=== PATIENT | male | born 1950 | race Hispanic/Latino ===

== ENCOUNTER → 2020-04-10 | Outpatient (CLI) | payer OTHER, MEDICARE | END | disposition home or self-care (01) | LOC: SHCH 10:21 | PROVIDERS: ATTEND Internal Medicine Cardiovascular Disease | DX: I51.7 Cardiomegaly (principal); I25.118 Atherosclerotic heart disease of native coronary artery with other forms of angina pectoris | CPT/HCPCS: 93306 ==

== ENCOUNTER → 2020-04-13 | Outpatient (CLI) | payer OTHER, MEDICARE ==
[~2020-04-13] MED LIST: REGADENOSON 0.4 MG/5 ML PF SYG IVP SCH
== END | disposition home or self-care (01) ==
LOC: SHCH 08:09
PROVIDERS: ATTEND Internal Medicine Cardiovascular Disease
DX: I25.118 Atherosclerotic heart disease of native coronary artery with other forms of angina pectoris (principal)
CPT/HCPCS: 78452; 93017; 96374; A9500 ×2; J2785

== ENCOUNTER 2021-10-17 16:40 | Inpatient (IN) | payer OTHER, MEDICARE ==
[~2021-10-17] VITALS: Ht 182.9 cm; Wt 117.9 kg
[2021-10-17 17:03] LABS: BASOPHILS % (AUTO) 0.8 % (0.0-5.0); EOSINOPHILS % (AUTO) 4.2 % (0.0-8.0); HEMATOCRIT 49.4 % (42-54); LYMPHOCYTES % (AUTO) 20.9 % (21.0-51.0); MEAN CORPUSCULAR HEMOGLOBIN 30.2 pg (27.0-33.0); MEAN CORPUSCULAR HGB CONC 33.4 g/dL (32.0-36.0); MEAN CORPUSCULAR VOLUME 90.3 fL (79-99); MONOCYTES % (AUTO) 10.1 % (3.0-13.0); NEUTROPHILS % (AUTO) 63.7 % (40.0-77.0); PLATELET COUNT (AUTO) 209 K/uL (130-400); RED BLOOD CELL COUNT(AUTO) 5.47 MIL/uL (4.50-6.20); RED CELL DISTRIBUTION WIDTH 13.8 % (11.0-15.5)
[2021-10-17] MEDS ORDERED: 0.9%NACL 1000ML 1,000 ML IV ONE (17:07)
[2021-10-17 17:17] LABS: CREATININE 1.6 mg/dL (0.5-1.5); INR 0.94 (0.85-1.15); POTASSIUM 4.1 mmol/L (3.5-5.1); PROTHROMBIN TIME 10.3 SEC (9.6-11.6)
[2021-10-17 17:18] LABS: PARTIAL THROMBOPLASTIN TIME 26.5 SEC (26.3-35.5)
[2021-10-17 17:26] LABS: B-TYPE NATRIURETIC PEPTIDE 238 pg/mL (0-100)
[2021-10-17 17:30] LABS: ALBUMIN 3.7 g/dL (3.5-5.0); BILIRUBIN,TOTAL 0.5 mg/dL (0.2-1.0); MAGNESIUM 1.9 mg/dL (1.80-2.40); TOTAL PROTEIN, SERUM 7.5 g/dL (6.0-8.3)
[2021-10-17 18:56] LABS: APPEARANCE,URINE Clear (CLEAR); BILIRUBIN,URINE Negative (NEGATIVE); COLOR,URINE Yellow (YELLOW); GLUCOSE, URINE (UA) >=1000 mg/dL (NEGATIVE); KETONES,URINE Negative (NEGATIVE); LEUKOCYTE ESTERASE ,URINE Negative (NEGATIVE); NITRATE,URINE Negative (NEGATIVE); OCCULT BLOOD,URINE Negative (NEGATIVE); PROTEIN,URINE Negative (NEGATIVE); UROBILINOGEN,URINE 0.2 mg/dL (0.2-1.0)
[2021-10-17] MEDS ORDERED: INSULIN HUMULIN R 100 UNIT/ML 3ML IV ONE (19:00)
[2021-10-17 19:04] LABS: BACTERIA,URINE Few /HPF (None Seen); MUCUS,URINE Few LPF (None Seen); SQUAMOUS EPITHELIAL CELL,UR Few /HPF (0-2)
[2021-10-17] MEDS ORDERED: 0.9% NACL 500ML IV.SOLN 500 ML IV ONE (19:45)
[2021-10-17] MEDS ORDERED: 0.9%NACL 1000ML 500 ML IV SCH (20:00)
[2021-10-17] MEDS ORDERED: ACETAMINOPHEN 325 MG TAB PO PRN (21:00)
[2021-10-17] MEDS ORDERED: GLUCAGON 1MG KIT 1 MG ML IM PRN (21:00)
[2021-10-17] MEDS ORDERED: DEXTROSE 50%-WATER 50 ML DISP.SYRIN IV PRN (21:00)
[2021-10-17] MEDS ORDERED: ONDANSETRON 4MG INJ IVP PRN (21:00)
[2021-10-17] MEDS: 0.9%NACL 1000ML 1,000 ML IV SCH (21:55)
[2021-10-17] MEDS: INSULIN R PO SS1 SQ SCH (22:15)
[2021-10-18 06:28] LABS: HEMATOCRIT 49.4 % (42-54); MEAN CORPUSCULAR HGB CONC 32.6 g/dL (32.0-36.0); MEAN CORPUSCULAR VOLUME 92.2 fL (79-99); RED BLOOD CELL COUNT(AUTO) 5.36 MIL/uL (4.50-6.20); RED CELL DISTRIBUTION WIDTH 14.1 % (11.0-15.5); WHITE BLOOD COUNT (AUTO) 5.7 K/uL (4.8-10.8)
[2021-10-18 06:36] LABS: HEMOGLOBIN A1C 9.6 % (4.0-6.0)
[2021-10-18 06:41] LABS: ALBUMIN 3.8 g/dL (3.5-5.0); BILIRUBIN,TOTAL 0.7 mg/dL (0.2-1.0); CREATININE 1.2 mg/dL (0.5-1.5); MAGNESIUM 2.1 mg/dL (1.80-2.40); TOTAL PROTEIN, SERUM 7.8 g/dL (6.0-8.3)
[2021-10-18] MEDS: INSULIN R PO SS1 SQ SCH ×2 (07:44→11:28)
[2021-10-18] MEDS ORDERED: METOPROLOL TARTRATE 25 MG TAB PO SCH (09:30)
[2021-10-18] MEDS: 0.9%NACL 1000ML 1,000 ML IV SCH (10:22)
[2021-10-18 14:09] VITALS: BP 115/48
== END 2021-10-18 15:21 | disposition home or self-care (01) | DRG 641 ==
LOC: EDH 16:40 → EDHIP 20:48
PROVIDERS: ADMIT Internal Medicine Infectious Disease; ATTEND Internal Medicine Infectious Disease
DX: E86.0 Dehydration (principal); N17.9 Acute kidney failure, unspecified; I48.0 Paroxysmal atrial fibrillation; E78.5 Hyperlipidemia, unspecified; I25.10 Atherosclerotic heart disease of native coronary artery without angina pectoris; E11.9 Type 2 diabetes mellitus without complications; Z20.822 Contact with and (suspected) exposure to COVID-19; I10 Essential (primary) hypertension; E66.01 Morbid (severe) obesity due to excess calories; Z68.35 Body mass index [BMI] 35.0-35.9, adult; Z83.3 Family history of diabetes mellitus; R55 Syncope and collapse
CPT/HCPCS: 36415; 71045; 80053; 81001; 82550; 82948; 83036; 83735; 83880; 84484; 85025; 85027; 85378; 85610; 85730; 87635; 93005; 93306; 93356; C9803; G0378; J1815; J7030; J7040

== ENCOUNTER 2021-11-15 09:45 | Emergency (ER) | payer OTHER, MEDICARE ==
[~2021-11-15] VITALS: Ht 182.9 cm; Wt 117.9 kg
[2021-11-15 10:13] LABS: BASOPHILS % (AUTO) 1.1 % (0.0-5.0); EOSINOPHILS % (AUTO) 4.7 % (0.0-8.0); HEMATOCRIT 51.1 % (42-54); LYMPHOCYTES % (AUTO) 22.7 % (21.0-51.0); MEAN CORPUSCULAR HGB CONC 33.1 g/dL (32.0-36.0); MEAN CORPUSCULAR VOLUME 90.6 fL (79-99); MONOCYTES % (AUTO) 8.8 % (3.0-13.0); NEUTROPHILS % (AUTO) 62.3 % (40.0-77.0); PLATELET COUNT (AUTO) 191 K/uL (130-400); RED BLOOD CELL COUNT(AUTO) 5.64 MIL/uL (4.50-6.20); RED CELL DISTRIBUTION WIDTH 13.9 % (11.0-15.5); WHITE BLOOD COUNT (AUTO) 5.4 K/uL (4.8-10.8)
[2021-11-15 10:21] LABS: CREATININE 1.2 mg/dL (0.5-1.5); POTASSIUM 4.2 mmol/L (3.5-5.1)
[2021-11-15] MEDS ORDERED: INSULIN HUMULIN R 100 UNIT/ML 3ML SQ SCH (13:30)
[2021-11-15] MEDS ORDERED: 0.9%NACL 1000ML 1,000 ML IV SCH (13:30)
[2021-11-15 14:09] LABS: APPEARANCE,URINE Clear (CLEAR); BILIRUBIN,URINE Negative (NEGATIVE); COLOR,URINE Yellow (YELLOW); GLUCOSE, URINE (UA) >=1000 mg/dL (NEGATIVE); KETONES,URINE Trace mg/dL (NEGATIVE); LEUKOCYTE ESTERASE ,URINE Negative (NEGATIVE); NITRATE,URINE Negative (NEGATIVE); OCCULT BLOOD,URINE Negative (NEGATIVE); PROTEIN,URINE Negative (NEGATIVE); UROBILINOGEN,URINE 0.2 mg/dL (0.2-1.0)
[2021-11-15 14:31] LABS: BACTERIA,URINE Rare /HPF (None Seen); RBC,URINE 0-1 /HPF (0-1); SQUAMOUS EPITHELIAL CELL,UR Rare /HPF (0-2); WBC,URINE 0-1 /HPF (0-1)
[2021-11-15 14:40] VITALS: BP 113/59
== END 2021-11-15 15:03 | disposition home or self-care (01) ==
LOC: EDH 09:45
DX: M62.81 Muscle weakness (generalized) (principal); E86.9 Volume depletion, unspecified; E11.9 Type 2 diabetes mellitus without complications; I11.0 Hypertensive heart disease with heart failure; I50.9 Heart failure, unspecified; Z98.890 Other specified postprocedural states
CPT/HCPCS: 36415; 80048; 81001; 82948 ×2; 84484; 85025; 93005; 96360; 96372; 99284; J1815; J7030; 96361

== ENCOUNTER 2022-03-22 08:03 | Emergency (ER) | payer OTHER, MEDICARE ==
[~2022-03-22] VITALS: Ht 182.9 cm; Wt 116.1 kg
[2022-03-22 08:48] LABS: HEMATOCRIT 48.1 % (42-54); LYMPHOCYTES % (AUTO) 22.8 % (21.0-51.0); MEAN CORPUSCULAR HEMOGLOBIN 30.6 pg (27.0-33.0); MEAN CORPUSCULAR HGB CONC 33.5 g/dL (32.0-36.0); MEAN CORPUSCULAR VOLUME 91.3 fL (79-99); MONOCYTES % (AUTO) 9.2 % (3.0-13.0); NEUTROPHILS % (AUTO) 60.8 % (40.0-77.0); PLATELET COUNT (AUTO) 172 K/uL (130-400); RED BLOOD CELL COUNT(AUTO) 5.27 MIL/uL (4.50-6.20); RED CELL DISTRIBUTION WIDTH 13.8 % (11.0-15.5); WHITE BLOOD COUNT (AUTO) 4.9 K/uL (4.8-10.8)
[2022-03-22 08:51] LABS: APPEARANCE,URINE CLEAR (CLEAR); BILIRUBIN,URINE NEGATIVE (NEGATIVE); COLOR,URINE YELLOW (YELLOW); GLUCOSE, URINE (UA) >=1000 mg/dL (NEGATIVE); KETONES,URINE NEGATIVE (NEGATIVE); LEUKOCYTE ESTERASE ,URINE NEGATIVE (NEGATIVE); NITRATE,URINE NEGATIVE (NEGATIVE); OCCULT BLOOD,URINE NEGATIVE (NEGATIVE); PROTEIN,URINE NEGATIVE (NEGATIVE); UROBILINOGEN,URINE 0.2 mg/dL (0.2-1.0)
[2022-03-22 08:56] LABS: POTASSIUM 4.3 mmol/L (3.5-5.1)
[2022-03-22] MEDS ORDERED: KETOROLAC 15MG/ML VIAL (15MG/ML) IV ONE (09:00)
[2022-03-22] MEDS ORDERED: 0.9% NACL 500ML IV.SOLN 500 ML IV ONE (09:00)
[2022-03-22 09:01] LABS: ALBUMIN 3.8 g/dL (3.5-5.0); BILIRUBIN,TOTAL 0.5 mg/dL (0.2-1.0); TOTAL PROTEIN, SERUM 7.6 g/dL (6.0-8.3)
[2022-03-22 09:13] LABS: B-TYPE NATRIURETIC PEPTIDE 15 pg/mL (0-100)
[2022-03-22 09:15] LABS: BACTERIA,URINE Rare /HPF (None Seen); RBC,URINE None Seen /HPF (0-1); SQUAMOUS EPITHELIAL CELL,UR Rare /HPF (0-2); WBC,URINE 0-1 /HPF (0-1)
[2022-03-22 11:20] VITALS: BP 116/65
[2022-03-22] MEDS ORDERED: INSULIN HUMULIN R 100 UNIT/ML 3ML SQ SCH (11:30)
== END 2022-03-22 11:35 | disposition home or self-care (01) ==
LOC: EDH 08:03
DX: E86.0 Dehydration (principal); R53.1 Weakness; E10.65 Type 1 diabetes mellitus with hyperglycemia; E86.9 Volume depletion, unspecified; I11.9 Hypertensive heart disease without heart failure; E78.00 Pure hypercholesterolemia, unspecified; Z79.1 Long term (current) use of non-steroidal anti-inflammatories (NSAID)
CPT/HCPCS: 36415; 80053; 81001; 82948; 83735; 83880; 84484; 85025; 93005; 96374; 99284; J1815; J1885; 96361; 96372

== ENCOUNTER 2022-12-31 09:32 | Emergency (ER) | payer OTHER, MEDICARE ==
[~2022-12-31] VITALS: Ht 182.9 cm; Wt 115.7 kg
[2022-12-31 10:44] LABS: HEMATOCRIT 49.7 % (42-54); MEAN CORPUSCULAR HEMOGLOBIN 29.8 pg (27.0-33.0); MEAN CORPUSCULAR HGB CONC 32.6 g/dL (32.0-36.0); MEAN CORPUSCULAR VOLUME 91.5 fL (79-99); RED BLOOD CELL COUNT(AUTO) 5.43 MIL/uL (4.50-6.20); RED CELL DISTRIBUTION WIDTH 13.6 % (11.0-15.5); WHITE BLOOD COUNT (AUTO) 5.6 K/uL (4.8-10.8)
[2022-12-31 10:55] LABS: POTASSIUM 4.5 mmol/L (3.5-5.1)
[2022-12-31 11:02] LABS: ALBUMIN 3.8 g/dL (3.5-5.0); TOTAL PROTEIN, SERUM 7.6 g/dL (6.0-8.3)
[2022-12-31 11:16] LABS: APPEARANCE,URINE CLEAR (CLEAR); BILIRUBIN,URINE NEGATIVE (NEGATIVE); COLOR,URINE LIGHT-YELLOW (YELLOW); GLUCOSE, URINE (UA) >=1000 mg/dL (NEGATIVE); KETONES,URINE NEGATIVE (NEGATIVE); LEUKOCYTE ESTERASE ,URINE NEGATIVE Leu/uL (NEGATIVE); NITRATE,URINE NEGATIVE (NEGATIVE); OCCULT BLOOD,URINE NEGATIVE (NEGATIVE); PROTEIN,URINE NEGATIVE (NEGATIVE); UROBILINOGEN,URINE 0.2 mg/dL (0.2-1.0)
[2022-12-31 11:50] LABS: MUCUS,URINE RARE LPF (None Seen); SQUAMOUS EPITHELIAL CELL,UR RARE /HPF (0-2)
[2022-12-31 12:51] VITALS: BP 134/77
[2022-12-31] MEDS ORDERED: 0.9%NACL 1000ML 1,000 ML IV ONE (13:00)
== END 2022-12-31 13:11 | disposition home or self-care (01) ==
LOC: EDH 09:32
DX: R53.82 Chronic fatigue, unspecified (principal); E86.0 Dehydration; E11.9 Type 2 diabetes mellitus without complications; Z79.899 Other long term (current) drug therapy
CPT/HCPCS: 99285; 96360; 71045; 84484; 80053; 83880; 85027; 81001; 36415; 93005; J7030

== ENCOUNTER 2023-03-18 09:45 | Observation (INO) | payer OTHER, MEDICARE ==
[~2023-03-18] VITALS: Ht 170.2 cm; Wt 116.4 kg
[2023-03-18] MEDS ORDERED: LACTATED RINGERS 1000ML 1,000 ML IV ONE (10:30)
[2023-03-18] MEDS ORDERED: MORPHINE 2 MG SYG IVP ONE ×2 (10:30→14:00)
[2023-03-18] MEDS ORDERED: ONDANSETRON 4MG INJ IVP ONE ×2 (10:30→14:00)
[2023-03-18 11:04] LABS: CREATININE 0.9 mg/dL (0.5-1.5); POTASSIUM 3.9 mmol/L (3.5-5.1)
[2023-03-18 11:08] LABS: EOSINOPHILS % (AUTO) 2.9 % (0.0-8.0); HEMATOCRIT 49.2 % (42-54); MEAN CORPUSCULAR HEMOGLOBIN 29.9 pg (27.0-33.0); MEAN CORPUSCULAR HGB CONC 33.1 g/dL (32.0-36.0); MEAN CORPUSCULAR VOLUME 90.3 fL (79-99); MONOCYTES % (AUTO) 9.3 % (3.0-13.0); NEUTROPHILS % (AUTO) 65.6 % (40.0-77.0); PLATELET COUNT (AUTO) 181 K/uL (130-400); RED BLOOD CELL COUNT(AUTO) 5.45 MIL/uL (4.50-6.20); RED CELL DISTRIBUTION WIDTH 13.3 % (11.0-15.5); WHITE BLOOD COUNT (AUTO) 5.2 K/uL (4.8-10.8)
[2023-03-18 11:09] LABS: ALBUMIN 3.8 g/dL (3.5-5.0); TOTAL PROTEIN, SERUM 7.5 g/dL (6.0-8.3)
[2023-03-18 11:11] LABS: INR 0.93 (0.85-1.15); PROTHROMBIN TIME 10.1 SEC (9.6-11.6)
[2023-03-18] MEDS: TOBRAMYCIN 0.3% 5 ML OPTH SOLN OD SCH (12:01)
[2023-03-18 12:33] LABS: B-TYPE NATRIURETIC PEPTIDE 19 pg/mL (0-100)
[2023-03-18 13:07] LABS: APPEARANCE,URINE CLEAR (CLEAR); BILIRUBIN,URINE NEGATIVE (NEGATIVE); COLOR,URINE LIGHT-YELLOW (YELLOW); GLUCOSE, URINE (UA) >=1000 mg/dL (NEGATIVE); KETONES,URINE 10 mg/dL (NEGATIVE); LEUKOCYTE ESTERASE ,URINE NEGATIVE Leu/uL (NEGATIVE); NITRATE,URINE NEGATIVE (NEGATIVE); OCCULT BLOOD,URINE NEGATIVE (NEGATIVE); PH,URINE 6.5 (5.0-8.0); PROTEIN,URINE NEGATIVE (NEGATIVE); UROBILINOGEN,URINE 0.2 mg/dL (0.2-1.0)
[2023-03-18 13:12] LABS: RBC,URINE 0-1 /HPF (0-1); SQUAMOUS EPITHELIAL CELL,UR RARE /HPF (0-2); WBC,URINE 0-1 /HPF (0-1)
[2023-03-18] MEDS ORDERED: KETOROLAC 15MG/ML VIAL (15MG/ML) IV ONE (14:00)
[2023-03-18] MEDS ORDERED: NITROGLYCERIN 0.4 MG SL TAB SL PRN (14:30)
[2023-03-18] MEDS ORDERED: KCL 20 MEQ ERTAB PO PRN (14:30)
[2023-03-18] MEDS ORDERED: POTASSIUM CHLORIDE 10% ELIXIR 20 MEQ/15 ML UDCUP PO PRN (14:30)
[2023-03-18] MEDS ORDERED: MAGNESIUM 2GM PREMIX 50ML 50 ML IV PRN (14:30)
[2023-03-18] MEDS ORDERED: ACETAMINOPHEN 325 MG TAB PO PRN (14:30)
[2023-03-18] MEDS ORDERED: HYDROCODONE/ACETAMINOPHEN 5/325 MG TAB PO PRN (14:30)
[2023-03-18] MEDS ORDERED: GLUCAGON 1MG KIT 1 MG ML IM PRN (14:30)
[2023-03-18] MEDS ORDERED: DiphenhydrAMINE HCL 50 MG/ML VIAL IV PRN (14:30)
[2023-03-18] MEDS ORDERED: ALBUTEROL 0.083% 2.5 MG/3 ML INH IH PRN (14:30)
[2023-03-18] MEDS ORDERED: LACTULOSE 20 GM/30 ML UDCUP PO PRN (14:30)
[2023-03-18] MEDS ORDERED: HYDROMORPHONE 1 MG INJ IV PRN (14:30)
[2023-03-18] MEDS ORDERED: ZOLPIDEM TARTRATE 5 MG TAB PO PRN (14:30)
[2023-03-18] MEDS ORDERED: DEXTROSE 50%-WATER 50 ML DISP.SYRIN IV PRN (14:30)
[2023-03-18] MEDS ORDERED: POTASSIUM CHLORIDE 20MEQ/100ML 100 ML IV PRN ×2 (14:30)
[2023-03-18] MEDS ORDERED: GUAIFENESIN-DM 200/20 MG 10 ML PO PRN (14:30)
[2023-03-18] MEDS: INSULIN HUMULIN R 100 UNIT/ML 3ML SQ SCH ×2 (16:30→21:27)
[2023-03-18] MEDS ORDERED: GADOTERATE MEGLUMINE 10 MMOL/20 ML VIAL IV ONE (16:56)
[2023-03-18] MEDS ORDERED: EMPA10TA PO (19:50)
[2023-03-18] MEDS ORDERED: ROSU5TAB12 PO (19:50)
[2023-03-18] MEDS ORDERED: METF-446 PO (19:50)
[2023-03-18] MEDS ORDERED: MECL-160 PO (19:50)
[2023-03-18] MEDS ORDERED: FLUT16H EN (19:50)
[2023-03-18] MEDS ORDERED: [UNRECOGNIZED DRUG - CODE] OP (19:50)
[2023-03-18] MEDS ORDERED: PANT40TA55 PO (19:50)
[2023-03-18] MEDS ORDERED: INSU3INS9 SQ (19:50)
[2023-03-18] MEDS ORDERED: LISI20TA24 PO (19:50)
[2023-03-18] MEDS ORDERED: FINA5TAB41 PO (19:50)
[2023-03-18] MEDS: FAMOTIDINE 20MG TAB PO SCH (21:29)
[2023-03-18] MEDS: ONDANSETRON 4MG INJ IV PRN (21:39)
[2023-03-18 22:00] VITALS: BP 153/78
[2023-03-18 22:19] VITALS: BP 144/75
[2023-03-19 04:00] VITALS: BP 118/52
[2023-03-19] MEDS: INSULIN HUMULIN R 100 UNIT/ML 3ML SQ SCH ×4 (06:18→20:12)
[2023-03-19] MEDS: TOBRAMYCIN 0.3% 5 ML OPTH SOLN OD SCH (07:27)
[2023-03-19 08:00] VITALS: BP 134/71
[2023-03-19] MEDS: FAMOTIDINE 20MG TAB PO SCH ×2 (09:21→20:24)
[2023-03-19] MEDS: ENOXAPARIN SODIUM 40 MG/0.4 ML SYRINGE SQ SCH (09:22)
[2023-03-19 11:41] VITALS: BP 137/72
[2023-03-19] MEDS: ONDANSETRON 4MG INJ IV PRN ×2 (11:49→20:23)
[2023-03-19] MEDS ORDERED: TOPIRAMATE 25 MG TABLET ONE (15:15)
[2023-03-19] MEDS: IBUPROFEN 600 MG TABLET PO SCH ×2 (15:19→20:24)
[2023-03-19] MEDS: TOPIRAMATE 25 MG TABLET PO SCH (15:19)
[2023-03-19 16:00] VITALS: BP 151/87
[2023-03-19 20:00] VITALS: BP 141/63
[2023-03-20] VITALS: BP 137/67
[2023-03-20 04:00] VITALS: BP 150/89
[2023-03-20 05:31] LABS: BASOPHILS % (AUTO) 0.7 % (0.0-5.0); EOSINOPHILS % (AUTO) 4.2 % (0.0-8.0); HEMATOCRIT 47.5 % (42-54); LYMPHOCYTES % (AUTO) 19.2 % (21.0-51.0); MEAN CORPUSCULAR HGB CONC 33.5 g/dL (32.0-36.0); MEAN CORPUSCULAR VOLUME 89.6 fL (79-99); MONOCYTES % (AUTO) 9.4 % (3.0-13.0); NEUTROPHILS % (AUTO) 66.3 % (40.0-77.0); PLATELET COUNT (AUTO) 192 K/uL (130-400); RED CELL DISTRIBUTION WIDTH 13.3 % (11.0-15.5); WHITE BLOOD COUNT (AUTO) 5.9 K/uL (4.8-10.8)
[2023-03-20] MEDS: IBUPROFEN 600 MG TABLET PO SCH ×2 (05:42→11:07)
[2023-03-20 06:03] LABS: ALBUMIN 3.6 g/dL (3.5-5.0); CREATININE 0.9 mg/dL (0.5-1.5); MAGNESIUM 1.9 mg/dL (1.80-2.40); TOTAL PROTEIN, SERUM 7.1 g/dL (6.0-8.3)
[2023-03-20] MEDS: INSULIN HUMULIN R 100 UNIT/ML 3ML SQ SCH ×2 (06:11→11:30)
[2023-03-20 08:00] VITALS: BP 146/86
[2023-03-20] MEDS ORDERED: TOBROS OD (09:03)
[2023-03-20] MEDS ORDERED: FAMO20TA8 PO (09:03)
[2023-03-20] MEDS ORDERED: IBUP-2070 PO (09:03)
[2023-03-20] MEDS ORDERED: TOPI25TA42 PO (09:03)
[2023-03-20] MEDS: TOPIRAMATE 25 MG TABLET PO SCH (10:00)
[2023-03-20] MEDS: FAMOTIDINE 20MG TAB PO SCH (10:00)
[2023-03-20] MEDS: ENOXAPARIN SODIUM 40 MG/0.4 ML SYRINGE SQ SCH (10:01)
[2023-03-20 12:00] VITALS: BP 140/82
== END 2023-03-20 14:25 | disposition home or self-care (01) ==
LOC: EDH 09:45 → EDHIP 14:22 → 4CH 21:51
PROVIDERS: ADMIT Internal Medicine; ATTEND Internal Medicine
DX: H02.401 Unspecified ptosis of right eyelid (principal); G43.909 Migraine, unspecified, not intractable, without status migrainosus; E11.65 Type 2 diabetes mellitus with hyperglycemia; I11.0 Hypertensive heart disease with heart failure; I50.32 Chronic diastolic (congestive) heart failure; E66.9 Obesity, unspecified; Z68.35 Body mass index [BMI] 35.0-35.9, adult; E78.5 Hyperlipidemia, unspecified; N41.9 Inflammatory disease of prostate, unspecified; K21.9 Gastro-esophageal reflux disease without esophagitis; G90.2 Horner's syndrome; H53.2 Diplopia; Z79.4 Long term (current) use of insulin; Z79.899 Other long term (current) drug therapy
CPT/HCPCS: 96374; 96376 ×2; 96372 ×3; 96361; 96375; 99285; 84484; 80053 ×2; 83880; 85025 ×2; 85610; 85651; 82948 ×9; 86140; 81001; 36415 ×2; 71045; 70450; 70553; 70544; 70547; 93005; 83735; G0378 ×48; J2405 ×4; J1885; A9575; J1650 ×2; J1815; A4600